=== PATIENT | female | born 1970 | race Caucasian/White ===

== ENCOUNTER 2019-04-23 12:30 | Day surgery (SDC) | payer OTHER ==
[2019-04-23] VITALS (8 sets, daily range): BP systolic 98–172; BP diastolic 53–108; PULSE 72–95; RESP 18–20; Ht 154.9 cm; Wt 98.8 kg
[~2019-04-23] VITALS: Ht 154.9 cm; Wt 98.8 kg
[2019-04-23] MEDS ORDERED: OMEPRAZOLE (13:46)
[2019-04-23] MEDS ORDERED: NAPROXEN (13:46)
[2019-04-23] MEDS ORDERED: LISINOPRIL (13:46)
[2019-04-23] MEDS ORDERED: FENTAnyl 50 MCG/ML VIAL ONE (14:35)
[2019-04-23] MEDS ORDERED: MIDAZOLAM 1 MG/ML 2 ML INJ ONE ×3 (14:35)
== END 2019-04-23 15:25 | disposition home or self-care (01) ==
LOC: GIL 12:30
PROVIDERS: ATTEND Internal Medicine Gastroenterology
DX: Z12.11 Encounter for screening for malignant neoplasm of colon (principal); I10 Essential (primary) hypertension
CPT/HCPCS: 45378; J2250; J3010